=== PATIENT | female | born 1995 | race Asian ===

== ENCOUNTER 2023-11-05 18:37 | Emergency (ER) | payer MEDICAID ==
[~2023-11-05] VITALS: Ht 160 cm; Wt 90.7 kg
[2023-11-05 19:21] VITALS: BP_SYST 145; PULSE 111; RESP 16; TEMP 97.8; O2SAT 100
[2023-11-05] MEDS ORDERED: AMOXICILLIN/POTASSIUM CLAV 875 MG TABLET PO ONE (20:45)
[2023-11-05] MEDS ORDERED: AUG875 PO ×2 (20:48→21:13)
[2023-11-05 21:06] VITALS: BP_SYST 123; PULSE 99; RESP 18; TEMP 98.4; O2SAT 97
== END 2023-11-05 20:57 | disposition home or self-care (01) ==
LOC: SED 18:37
DX: S01.112A Laceration without foreign body of left eyelid and periocular area, initial encounter (principal); Z79.899 Other long term (current) drug therapy; W54.0XXA Bitten by dog, initial encounter; Y93.89 Activity, other specified; Y92.89 Other specified places as the place of occurrence of the external cause; Y99.8 Other external cause status
CPT/HCPCS: 99283